=== PATIENT | female | born 1955 | race Caucasian/White ===

== ENCOUNTER 2019-08-22 11:44 | Day surgery (SDC) | payer OTHER ==
[~2019-08-22] VITALS: Ht 162.6 cm; Wt 133.7 kg
[~2019-08-22 11:44] MED LIST: ACET325 PO; AMLO10 PO; AMLO5 PO; ASCO500 PO; ASPI81CH PO; ATEN25 PO; ATOR20 PO; Adult Low Dose81 MG PO; BENAML10/40 PO; BENAML20/5 PO; Cinnamon500 MG PO; Coq-10100 MG PO; Coreg12.5 MG PO; DIGESTIVE ENZY1 EAC1 PO; ESOM20 PO; Ginger250 MG PO; HYDR-86; LOSARTAN POTAS100 MG PO; LOVA40; Lovastatin20 MG PO; MAGOXI400 PO; METF500C PO; METO25ER PO; NAPR220 PO; PANT40 PO; Vitamin D400 UNI1 PO; [UNRECOGNIZED DRUG - OTHER]
[2019-08-22] MEDS ORDERED: Benicar Hct 201 EACH (12:14)
== END 2019-08-22 14:15 | disposition home or self-care (01) ==
LOC: ORSCSDS 11:44
PROVIDERS: Internal Medicine Gastroenterology
PROC: 0DBM8ZX Excision of Descending Colon, Via Natural or Artificial Opening Endoscopic, Diagnostic (ICD-10-PCS; principal; 2019-08-22 13:00)
PROC: 0DB68ZX Excision of Stomach, Via Natural or Artificial Opening Endoscopic, Diagnostic (ICD-10-PCS; principal; 2019-08-22 13:00)
PROC: 0DBH8ZX Excision of Cecum, Via Natural or Artificial Opening Endoscopic, Diagnostic (ICD-10-PCS; principal; 2019-08-22 13:00)
PROC: 0DBP8ZX Excision of Rectum, Via Natural or Artificial Opening Endoscopic, Diagnostic (ICD-10-PCS; principal; 2019-08-22 13:00)
PROC: 0DBK8ZX Excision of Ascending Colon, Via Natural or Artificial Opening Endoscopic, Diagnostic (ICD-10-PCS; principal; 2019-08-22 13:00)
DX: Z12.11 Encounter for screening for malignant neoplasm of colon (principal); Z80.0 Family history of malignant neoplasm of digestive organs; K57.30 Diverticulosis of large intestine without perforation or abscess without bleeding; K21.9 Gastro-esophageal reflux disease without esophagitis; D12.0 Benign neoplasm of cecum; D12.2 Benign neoplasm of ascending colon; K63.5 Polyp of colon; K62.1 Rectal polyp; K31.7 Polyp of stomach and duodenum; G47.33 Obstructive sleep apnea (adult) (pediatric); E11.9 Type 2 diabetes mellitus without complications; E66.01 Morbid (severe) obesity due to excess calories; Z68.43 Body mass index [BMI] 50.0-59.9, adult; Z79.899 Other long term (current) drug therapy; Z79.82 Long term (current) use of aspirin
CPT/HCPCS: 82947; 88305; J2704; J7120